=== PATIENT | female | born 1975 | race Caucasian/White ===

== ENCOUNTER 2016-05-28 17:52 | Emergency (ER) | payer OTHER ==
[~2016-05-28] VITALS: Ht 162.6 cm; Wt 67.7 kg
[2016-05-28 20:15] VITALS: BP 137/76
== END 2016-05-28 20:17 | disposition home or self-care (01) ==
LOC: EME 17:52 → RME 17:52
DX: F07.81 Postconcussional syndrome (principal)
CPT/HCPCS: 70450; 99281; 99283